=== PATIENT | male | born 1980 | race Caucasian/White ===

== ENCOUNTER 2016-05-28 20:38 | Emergency (ER) | payer OTHER ==
[~2016-05-28] VITALS: Ht 177.8 cm; Wt 84.0 kg
[2016-05-28 20:44] VITALS: BP 165/106; PULSE 78; RESP 17; TEMP 98.3; O2SAT 98
[2016-05-28] MEDS ORDERED: LIDOCAINE 1%/EPINEPHrine 1:100,000 SOLN 20 ML VIAL INFIL ONE (22:00)
--- NOTE | 2016-05-28 22:17 | PD ---
HPI Chief Complaint: Psychiatric Symptoms Time Seen by Provider: 22:11 Travel History International Travel<30 days: No Contact w/Intl Traveler<30days: No Traveled to known affect area: No History of Present Illness HPI 35-year-old male that presents to the ED for eval accommodation Reeves act. Patient was Reeves acted after apparently he made suicidal statements and stated that he hit his head multiple times in a single secondary to be angry at being aggravation today. Per patient he has a history of PTSD secondary to [place] wall. The patient he takes no medications for this. Per patient he did smoke some pot as well as drank some alcohol today. Per patient he didn't want to kill himself but he was really angry about the election and he decided to hit his head multiple times on the head. Patient denies losing consciousness. Patient does have a laceration to the forehead. Patient denies any other medical process. Takes no medications. No blood thinners. He is never being Reeves acted. He denies any suicidal or homicidal ideation to me. No hallucinations. No other medical problems to me. Patient states that he is up- to-date with his tetanus. PFSH Past Medical History Anxiety: Yes Depression: Yes Diminished Hearing: No Psychiatric: Yes (PTSD) Influenza Vaccination: No Social History Alcohol Use: Yes Tobacco Use: Yes Substance Use: No Allergies-Medications (Allergen,Severity, Reaction): Coded Allergies: Sulfa (Verified Allergy, Severe, Hives, 05/28/16) Reported Meds & Prescriptions Reported Meds & Active Scripts Active No Active Prescriptions or Reported Medications Review of Systems Except as stated in HPI: all other systems reviewed are Neg Physical Exam Narrative GENERAL: SKIN: Warm and dry. Patient has a skin avulsion that is strangler on the mid forehead with superficial lacerations around it. Laceration avulsion is about 1 cm. HEAD: Atraumatic. Normocephalic. EYES: Pupils equal and round. No scleral icterus. No injection or drainage. ENT: No nasal bleeding or discharge. Mucous membranes pink and moist. Tongue is midline. No uvula deviation. NECK: Trachea midline. No JVD. CARDIOVASCULAR: Regular rate and rhythm. RESPIRATORY: No accessory muscle use. Clear to auscultation. Breath sounds equal bilaterally. GASTROINTESTINAL: Abdomen soft, non-tender, nondistended. Hepatic and splenic margins not palpable. MUSCULOSKELETAL: Extremities without clubbing, cyanosis, or edema. No obvious deformities. Full range of motion of the upper and lower extremities bilaterally. 2+ pulses bilaterally. No cervical, thoracic, lumbar spine tenderness to palpation. NEUROLOGICAL: Awake and alert. No obvious cranial nerve deficits. Motor grossly within normal limits. Five out of 5 muscle strength in the arms and legs. Normal speech. PSYCHIATRIC: Appropriate mood and affect; insight and judgment normal. Data Data Last Documented VS Vital Signs Date Time Temp Pulse Resp B/P Pulse Ox O2 Delivery O2 Flow Rate FiO2 05/28/16 20:50 75 17 05/28/16 20:44 98.3 165/106 98 Orders Complete Blood Count With Diff (05/28/16 20:54) Comprehensive Metabolic Panel (05/28/16 20:54) Drug Screen, Random Urine (05/28/16 20:54) Alcohol (Ethanol) (05/28/16 20:54) Psych Screen (05/28/16 20:54) ^ Sitter (05/28/16 21:37) Lidocai-Epi 1%-1:100,000 Inj (Xylocaine- (05/28/16 22:00) Haloperidol Inj (Haldol Inj) (05/28/16 22:37) Lorazepam Inj (Ativan Inj) (05/28/16 22:37) Haloperidol Inj (Haldol Inj) (05/28/16 22:45) Lorazepam Inj (Ativan Inj) (05/28/16 22:45) Labs Laboratory Tests Test 05/28/16 21:20 White Blood Count 10.8 TH/MM3 Red Blood Count 5.29 MIL/MM3 Hemoglobin 16.8 GM/DL Hematocrit 48.4 % Mean Corpuscular Volume 91.4 FL Mean Corpuscular Hemoglobin 31.8 PG Mean Corpuscular Hemoglobin 34.8 % Concent Red Cell Distribution Width 12.5 % Platelet Count 213 TH/MM3 Mean Platelet Volume 9.4 FL Neutrophils (%) (Auto) 72.9 % Lymphocytes (%) (Auto) 20.7 % Monocytes (%) (Auto) 4.3 % Eosinophils (%) (Auto) 1.4 % Basophils (%) (Auto) 0.7 % Neutrophils # (Auto) 7.9 TH/MM3 Lymphocytes # (Auto) 2.2 TH/MM3 Monocytes # (Auto) 0.5 TH/MM3 Eosinophils # (Auto) 0.1 TH/MM3 Basophils # (Auto) 0.1 TH/MM3 CBC Comment DIFF FINAL Differential Comment Sodium Level 144 MEQ/L Potassium Level 3.8 MEQ/L Chloride Level 110 MEQ/L Carbon Dioxide Level 21.8 MEQ/L Anion Gap 12 MEQ/L Blood Urea Nitrogen 10 MG/DL Creatinine 0.85 MG/DL Estimat Glomerular Filtration 102 ML/MIN Rate Random Glucose 88 MG/DL Calcium Level 8.9 MG/DL Total Bilirubin 0.5 MG/DL Aspartate Amino Transf 21 U/L (AST/SGOT) Alanine Aminotransferase 31 U/L (ALT/SGPT) Alkaline Phosphatase 76 U/L Total Protein 8.3 GM/DL Albumin 4.7 GM/DL Urine Opiates Screen NEG Urine Barbiturates Screen NEG Urine Amphetamines Screen NEG Urine Benzodiazepines Screen NEG Urine Cocaine Screen NEG Urine Cannabinoids Screen POS Ethyl Alcohol Level 196 MG/DL MDM Medical Decision Making Medical Screen Exam Complete: Yes Emergency Medical Condition: Yes Medical Record Reviewed: Yes Interpretation(s) CBC & BMP Diagram 05/28/16 21:20 LFTS wnl tox positive for cannabinoids, alcohol Differential Diagnosis Depression versus suicidal ideation versus anxiety versus adjustment disorder versus mood disorder versus bipolar disorder versus schizophrenia versus paranoid disorder versus psychosis versus substance abuse versus alcohol abuse versus alcohol induced psychosis versus homicidality addition versus cutting versus personality disorder versus laceration Narrative Course 35-year-old male that presents to the ED for evaluation of laceration to the head as well as Reeves act. Patient was properly examined and was found to have signs and symptoms consistent what appears to be psychiatric illness and laceration. I offered patient's CT of the head which I do recommend secondary to the multiple injuries that he did to his head. He refuses at this time stating that he does not want to have the financial burden of having the CAT scan done. He understands that by not having the scan I cannot rule out head bleed or fracture which can cause severe illness including that and disability and he states that he understands. At this time patient is of sound mind to make this decision. He did allow me to the suture as well as the labs for the Reeves act. After explaining procedure to the patient and he agreed to it laceration was repaired as stated in procedure note. Told to get sutures removed in 7 days. Patient was medically cleared. Okay to be seen by psych. Mental health screening was discussed with the patient. Patient apparently got violent and I was called into the room. Patient was given Haldol and clonazepam. Patient had to be restrained. Procedures Procedure Narrative LACERATION LOCATION: skin avulsion forehead LENGTH: 2 cm NUMBER OF STITCHES/DEANNE: 4 sutures REPAIR: The area of the laceration was prepped with Betadine and sterilely draped. The laceration was infiltrated with 1% Xylocaine. The wound was copiously irrigated and explored without evidence of foreign body, tendon injury or neurovascular injury. The wound was closed using 4-0 Prolene. This was a 1 layer repair. A sterile dressing was applied. The patient was advised to keep the dressing clean and dry. Patient tolerated the procedure well. Diagnosis Primary Impression: PTSD (post-traumatic stress disorder) Additional Impression: Laceration Scripts No Active Prescriptions or Reported Meds Kendall Prater May 28, 2016 22:17
[2016-05-28 22:21] LABS: AMPHETAMINE, URINE NEG (NEG); BARBITURATES, URINE NEG (NEG); COCAINE, URINE NEG (NEG)
[2016-05-28 22:31] LABS: ALT (GPT) 31 U/L (12-78); ANION GAP 12 MEQ/L (5-15); AST (GOT) 21 U/L (15-37); BICARBONATE 21.8 MEQ/L (21.0-32.0); BLOOD UREA NITROGEN 10 MG/DL (7-18); CHLORIDE 110 MEQ/L (98-107); GLOMERULAR FILTRATION RATE 102 ML/MIN (>89); POTASSIUM 3.8 MEQ/L (3.5-5.1); SODIUM (NA) 144 MEQ/L (136-145)
[2016-05-28 22:33] LABS: ALKALINE PHOSPHATASE 76 U/L (45-117); TOTAL BILIRUBIN ADULT 0.5 MG/DL (0.2-1.0)
[2016-05-28 22:34] LABS: AUTOMATED NEUTROPHIL # 7.9 TH/MM3 (1.8-7.7); BASOPHIL # 0.1 TH/MM3 (0-0.2); BASOPHIL % 0.7 % (0.0-2.0); EOSINOPHIL # 0.1 TH/MM3 (0-0.4); EOSINOPHIL % 1.4 % (0.0-4.0); HEMATOCRIT 48.4 % (39.0-51.0); HEMO FLAGS DIFF FINAL; LYMPH % 20.7 % (9.0-44.0); LYMPHOCYTE # 2.2 TH/MM3 (1.0-4.8); MEAN CELL VOLUME 91.4 FL (80.0-100.0); MEAN CORPUSCULAR HEMOGLOBIN 31.8 PG (27.0-34.0); MEAN CORPUSCULAR HGB CONC 34.8 % (32.0-36.0); MONO % 4.3 % (0.0-8.0); NEUT % 72.9 % (16.0-70.0); PLATELET COUNT 213 TH/MM3 (150-450); RED BLOOD COUNT 5.29 MIL/MM3 (4.50-5.90); RED CELL DISTRIBUTION WIDTH 12.5 % (11.6-17.2); WHITE BLOOD COUNT 10.8 TH/MM3 (4.0-11.0)
[2016-05-28] MEDS ORDERED: LORazepam 2 MG/ML VIAL ONE (22:37)
[2016-05-28] MEDS ORDERED: HALOPERIDOL LACTATE 5 MG/ML AMP ONE (22:37)
[2016-05-28] MEDS ORDERED: HALOPERIDOL LACTATE 5 MG/ML AMP IM ONE (22:45)
[2016-05-28] MEDS ORDERED: LORazepam 2 MG/ML VIAL IM ONE (22:45)
[2016-05-29 02:22] VITALS: BP 119/58; PULSE 75; RESP 18; TEMP 97.6; O2SAT 99
[2016-05-29 06:21] VITALS: BP 109/55; PULSE 77; RESP 18; TEMP 97.5; O2SAT 98
== END 2016-05-29 14:25 ==
LOC: NEPA 20:38 → NEPJ 05-29 14:25
DX: F43.10 Post-traumatic stress disorder, unspecified (principal); S01.81XA Laceration without foreign body of other part of head, initial encounter; R45.851 Suicidal ideations; F41.8 Other specified anxiety disorders; Z72.0 Tobacco use; F10.10 Alcohol abuse, uncomplicated; F12.10 Cannabis abuse, uncomplicated
CPT/HCPCS: 12011; 80053; 80307; 80320; 85025; 96372; 96374; 99285; J1630; J2060